=== PATIENT | male | born 1955 | race Two or more races ===

== ENCOUNTER 2018-01-08 20:17 | Inpatient (IN) ==
[2018-01-08 20:49] LABS: Basophils % 0.1 % (0.1-2.0); Eosinophils # 0.1 K/mm3 (0.0-0.4); Eosinophils % 0.6 % (0.1-12.0); Hematocrit 45.9 % (42.0-52.0); Hemoglobin 14.9 g/dL (14.1-18.0); Lymphocytes % 8.3 % (10-50); Mean Corpuscular HGB Conc 32.5 g/dL (31.8-35.4); Mean Corpuscular Hemoglobin 30.2 pg (27.0-31.2); Mean Corpuscular Volume 92.9 fl (80-94); Mean Platelet Volume 8.5 fl (7.4-10.4); Monocytes # 0.5 K/mm3 (0.1-1.0); Monocytes % 4.5 % (1.7-9.3); Neutrophils # 10.5 K/mm3 (1.8-7.8); Neutrophils % 86.5 % (37.0-80.0); Platelet Count 250 K/mm3 (142-424); Red Blood Count 4.94 M/mm3 (4.60-6.20); Red Cell Distribution Width 13.4 % (11.5-17.5); White Blood Count 12.1 K/mm3 (4.8-10.8)
[2018-01-08 21:06] LABS: Lymphocytes % 4 % (10-50); Monocytes % 2 % (2-9); Neutrophils % 80 % (42-76); RBC Morphology Normal; Total Cells Counted 100
[2018-01-08 21:11] LABS: Albumin Level 2.7 gm/dL (3.4-5.0); Anion Gap 16.3 mEq/L (5-15); Bilirubin,Direct 0.4 mg/dL (0.0-0.2); Bilirubin,Indirect 0.5 mg/dL (0.0-0.9); Bilirubin,Total 0.9 mg/dL (0.2-1.0); Calcium 8.5 mg/dL (8.5-10.1); Potassium 3.3 mmoL/L (3.5-5.1); T4 (Thyroxine) 7.3 ug/dl (4.7-13.3); Thyroid Stimulating Hormone 0.97 uIU/ml (0.358-3.740); Total Protein,Serum 7.1 gm/dL (6.4-8.2)
[2018-01-08 21:37] LABS: Microscopic, Urine URINE MICROSCOPIC (MICROSCOPIC)
[2018-01-08 21:39] LABS: Appearance,Urine CLEAR (Clear); Bilirubin,Urine Negative (Negative); Blood, Urine 3+ (Negative); Color,Urine YELLOW (Yellow); Glucose,Urine (UA) Negative (Negative); Ketones,Urine 1+ (Negative); Leukocyte Esterase,Urine Negative (Negative); Protein,Urine 1+ (Negative)
[2018-01-08 21:42] LABS: Amorphous Sediment,Urine Trace /lpf
--- NOTE | 2018-01-08 22:03 | Emergency Department Note ---
ED Disposition Clinical Impression: Hyponatremia CAP (community acquired pneumonia) Qualifiers: Laterality: right Lung location: lower lobe of lung Qualified Code(s): J18.1 - Lobar pneumonia, unspecified organism Disposition: Admitted as Observation Condition on Discharge: Good Referrals: Provider,Referral, [Primary Care Provider] - - Critical Care Critical Care Time: No Attestation: On 01/08/18, the high probability of a clinically significant, sudden or life threatening deterioration of the following system(s) required my full and direct attention, intervention and personal management. The time I documented below is in addition to time spent performing reported procedures but includes the following listed in this critical care notation. Medical Decision Making - Medical Records Medical records reviewed: Yes: I reviewed the patient's medical records. - Trevor Inquiry Pt receiving controlled substance: No Vital Signs: 01/08/18 20:20 01/08/18 21:14 01/08/18 21:28 Temperature 103 F H 102.1 F H 100.4 F H Temperature Source Oral Oral Oral Pulse Rate [Right Brachial] 103 H 72 81 Respiratory Rate 18 14 Blood Pressure [Right Arm] 110/47 L 103/41 L 115/66 Blood Pressure Mean [Right Arm] 68 61 82 Blood Pressure Source [Right Arm] Automatic Cuff Blood Pressure Position [Right Arm] Sitting 02 Sat by Pulse Oximetry 95 95 96 Oxygen Delivery Method Room Air Room Air Room Air - Lab Data Lab results reviewed: Yes: I reviewed the patient's lab results. Lab Results 01/08/18 20:30: WBC 12.1 H, RBC 4.94, Hgb 14.9, Hct 45.9, MCV 92.9, MCH 30.2, MCHC 32.5, RDW 13.4, Plt Count 250, MPV 8.5, Neut % (Auto) 86.5 H, Lymph % (Auto) 8.3 L, [place] % (Auto) 4.5, Eos % (Auto) 0.6, Baso % (Auto) 0.1, Neut # (Auto) 10.5 H, Lymph # (Auto) 1.0, [place] # (Auto) 0.5, Eos # (Auto) 0.1, Baso # (Auto) 0.0, Total Counted 100, Neutrophils % (Manual) 80 H, Band Neutrophils % 14.0 H, Lymphocytes % (Manual) 4 L, Monocytes % (Manual) 2, Platelet Estimate Normal, RBC Morphology Normal 01/08/18 20:30: Sodium 124 L, Potassium 3.3 L, Chloride 88 L, Carbon Dioxide 23, Anion Gap 16.3 H, BUN 21 H, Creatinine 1.04, Estimated Creat Clear 92, Estimated GFR 72, Est GFR ( Amer) 87, Glucose 141 H, Calcium 8.5, Total Bilirubin 0.9, Direct Bilirubin 0.4 H, Indirect Bilirubin 0.5, AST 87 H, ALT 53, Alkaline Phosphatase 63, Troponin I 0.10 H, Total Protein 7.1, Albumin 2.7 L, Amylase 52, Lipase 163, TSH 0.97, Thyroxine (T4) 7.3 01/08/18 20:30: Lactate 1.7 01/08/18 20:30: Influenza Type A Ag Negative, Influenza Type B Ag Negative 01/08/18 21:27: Urine Color Yellow, Urine Appearance Clear, Urine pH 6.0, Ur Specific [place] 1.020, Urine Protein 1+, Urine Glucose (UA) Negative, Urine Ketones 1+, Urine Blood 3+, Urine Nitrate Negative, Urine Bilirubin Negative, Urine Urobilinogen 4.0, Ur Leukocyte Esterase Negative, Urine RBC 5-10, Urine WBC 3-5, Amorphous Sediment Trace Result diagrams: 01/08/18 20:30 01/08/18 20:30 Orders (Tests/Meds): ED MEDICATIONS Discontinued Medications Generic Name Dose Route Start Last Admin Trade Name Oma PRN Reason Stop Dose Admin Acetaminophen 1,000 mg 01/08/18 20:29 01/08/18 20:33 Tylenol 500mg Tablet PO 01/08/18 20:30 1,000 mg ONCE ONE Administration Aspirin 324 mg 01/08/18 20:29 01/08/18 20:33 Aspirin 81mg Chewable Tablet PO 01/08/18 20:30 324 mg ONCE ONE Administration Sodium Chloride 1,000 mls @ 999 mls/hr 01/08/18 20:45 01/08/18 20:33 Sod Chlor 0.9% 1000ml Bag IV 01/08/18 21:45 999 mls/hr .Q1H1M ESTRELLA Administration Ibuprofen 800 mg 01/08/18 20:29 01/08/18 20:33 Motrin 400mg Tablet PO 01/08/18 20:30 800 mg ONCE ONE Administration Methylprednisolone Sodium Succinate 125 mg 01/08/18 20:29 01/08/18 20:33 Solu-Medrol 125mg/2ml Vial IV 01/08/18 20:30 125 mg ONCE ONE Administration Ondansetron HCl 4 mg 01/08/18 20:29 01/08/18 20:33 Zofran 4mg/2ml Vial IV 01/08/18 20:30 4 mg ONCE ONE Administration ORDERS Category Date Time Status CT abdomen pelvis wo con Stat Cat Scan 01/08/18 20:[address] chest wo con Routine Cat Scan 01/08/[address] head/brain wo con Stat Cat Scan 01/08/18 20:29 Taken XR chest 2V Stat Exams 01/08/18 20:29 Taken Urinalysis-Acute [Urinalysis and Microscopic] Stat Lab 01/08/18 21:27 Ordered Blood Culture Stat Micro 01/08/18 20:33 Ordered ECG Request by /Nav Stat Y 01/08/18 20:29 Ordered - Radiology Data #1 Image(s): Chest Image Reviewed: Yes I reviewed the patient's radiology image Preliminary Findings: Abnormal (cap) - CT Data CT Scan: Head, Abdomen, Pelvis, Chest Time Received: 22:[address] Reviewed: Yes: I have viewed the radiologist's interpretation Preliminary Findings: Abnormal (see report) - ECG Data Tracing #1 I reviewed this ECG and interpreted as documented below: Normal Sinus Rhythm: Yes Ischemic changes: non-specific ST-T wave changes ECG compared to prior tracings: this ECG reveals significant changes - Physician Consults Physician Consulted: atul Reason -: Admission Fever HPI - General Chief Complaint: Weakness Stated Complaint: Vomiting, lethargic Time Seen by Provider: 01/08/18 20:30 Mode of Arrival: Ambulatory Limitations: No Limitations Description of Symptoms (Recalled from ER Triage Doc. by RN): Pt reports since Friday he has been vomiting, shaking, chills, possible fevers, and lethargy since Friday. Family reports during Thanksgiving dinner they noticed he was not "ok and not himself" so they brought him in. Pt denies pain at this time, he does report vomiting at this time. Denies abdominal pain. Denies cp, does c/o soa. - History of Present Illness HPI Narrative: prod cough with no hemoptysis and progressive fever with confusion over the last few days - does smoke MD complaint: fever Onset (ago): day(s) Associated symptoms: cough, confusion Relieving factors: nothing Treatments prior to arrival fever: none - Related Data Home Medications Medication Instructions Recorded Confirmed No Known Home Medications 01/08/18 01/08/18 Allergies Allergy/AdvReac Type Severity Reaction Status Date / Time No Known Allergies Allergy Verified 01/07/18 10:58 [facility] History I have reviewed the patient's past medical history: Yes Medical History: Denies:: Cancer, Diabetes Mellitus Type 1, Diabetes Mellitus Type 2, MRSA Other Surgeries: Yes: No Previous Surgery Amputation: No Fractures: No - Social History Smoking Status: Current every day smoker Tobacco Type: cigarettes # Packs/Day (cigarettes): 1 Alcohol Intake: never Alcohol Intake Frequency:: holidays/special occasions only Occupational Status: employed Housing: house Household Members: family - Psychiatric History Expresses thoughts of harming self/others: None Suicide Plan Description: No Plan Family Hx:: No significant family history ROS Obtained: Yes All systems reviewed & no additional complaints - Constitutional Constitutional: Reports fever(s), Reports poor appetite, Reports weakness - Eyes Eyes: Denies change in vision - ENT Ears, Nose, Mouth, and Throat: Denies sore throat - Cardiovascular Cardiovascular: Denies chest pain - Respiratory Respiratory: Yes cough, No coughing up blood - Gastrointestinal Gastrointestingal: Reports: nausea, vomiting. Denies: abdominal pain, diarrhea - Genitourinary Male Genitourinary: Denies hematuria - Musculoskeletal Musculoskeletal: Denies joint pain - Integumentary/Breasts Skin/Breast: Denies rash - Neurologic Neurologic: Reports as per HPI, Reports confusion, Denies seizure-like activity Physical Exam - General General appearance: alert - Head Head exam: normocephalic - Eye Eye exam: Present: PERRL, EOMI. Absent: scleral icterus - ENT ENT exam: Present: mucous membranes dry - Neck Neck exam: Present: trachea midline - Respiratory Respiratory exam: Absent: respiratory distress - Cardiovascular Cardiovascular exam: Present: regular rate, systolic murmur - Abdominal Exam Abdominal exam: Present: soft. Absent: tenderness - Extremities Exam Extremities exam: Present: full ROM - Neurological Exam Neurological exam: Present: alert, oriented X3, CN II-XII intact. Absent: motor sensory deficit - Psychiatric Psychiatric exam: Present: normal affect - Skin Skin exam: Absent: rash
[2018-01-09 04:35] LABS: Basophils % 0.1 % (0.1-2.0); Eosinophils # 0.1 K/mm3 (0.0-0.4); Eosinophils % 0.9 % (0.1-12.0); Hematocrit 44.1 % (42.0-52.0); Hemoglobin 14.1 g/dL (14.1-18.0); Lymphocytes # 0.8 K/mm3 (0.7-4.5); Lymphocytes % 8.9 % (10-50); Mean Corpuscular Hemoglobin 30.3 pg (27.0-31.2); Mean Corpuscular Volume 94.5 fl (80-94); Mean Platelet Volume 8.8 fl (7.4-10.4); Monocytes # 0.3 K/mm3 (0.1-1.0); Monocytes % 3.2 % (1.7-9.3); Neutrophils # 7.5 K/mm3 (1.8-7.8); Platelet Count 200 K/mm3 (142-424); Red Blood Count 4.67 M/mm3 (4.60-6.20); Red Cell Distribution Width 13.5 % (11.5-17.5); White Blood Count 8.7 K/mm3 (4.8-10.8)
[2018-01-09 04:50] LABS: Anion Gap 12.1 mEq/L (5-15); Calcium 7.5 mg/dL (8.5-10.1); Potassium 3.1 mmoL/L (3.5-5.1)
--- NOTE | 2018-01-09 06:50 | History & Physical Report ---
*Admission Date: 01/08/18 *Chief complaint: Fever *History of present illness: 62-year-old male with no significant medical history other than he is a smoker presented to the emergency department with fevers and change in level of consciousness. Patient had been experiencing fevers for approximately the last week. He had associated cough and mild shortness of breath. This did not prevent him from traveling to [place]. Upon return from [place] he was spending time with family yesterday and was noticed to have altered level of consciousness and was brought to the ER. In the ER patient seemed excessively sleepy but could awaken with verbal and tactile stimulus. He would answer questions appropriately and then she had his eyes again. He was found to be febrile. Workup was begun which were revealed a right lower lobe pneumonia on chest x-ray. Once patient defervesced he became more alert. Patient was admitted for treatment of right lower lobe pneumonia. Once he arrived up on the floor patient returned to his previous level of consciousness with excessive drowsiness. He would easily awaken to verbal and tactile stimulus from the nurses. He developed hypothermia and was placed under warm blankets and a bear hugger. Patient also developed some widened QRS for a few beats on telemetry monitoring and was given a gram of magnesium. This morning he remains drowsy but awakens easily. He denies pain. He denies chest pain. He denies joint pains. He denies rashes. He denies nausea, vomiting, diarrhea. [facility] History I have reviewed the patient's past medical history: Yes Medical History: Denies:: Cancer, Diabetes Mellitus Type 1, Diabetes Mellitus Type 2, MRSA Other Surgeries: Yes: No Previous Surgery Amputation: No Fractures: No - *Social History Educational Level: Attended High School Smoking Status: Current every day smoker Tobacco Type: cigarettes # Packs/Day (cigarettes): 1 #Yrs smoked (if former smoker): 30 Alcohol Intake: current Alcohol Intake Frequency:: holidays/special occasions only Occupational Status: employed Housing: house Household Members: family - Psychiatric History Expresses thoughts of harming self/others: None Suicide Plan Description: No Plan *Family Hx:: No significant family history Review of Systems - Review of Systems Review of systems:: pertinent systems reviewed and negative unless documented below - *Neurologic Reports confusion, Reports weakness, Denies seizure-like activity Meds Home Medications Medication Instructions Recorded Confirmed Type No Known Home Medications 01/08/18 01/08/18 History Allergies Allergy/AdvReac Type Severity Reaction Status Date / Time No Known Allergies Allergy Verified 01/07/18 10:58 Exam Vital signs and Labs for Last 24 Hours: Temp Pulse Resp BP Pulse Ox 94.4 F L 93 H 14 99/67 L 94 L 01/09/18 06:15 01/09/18 06:00 01/09/18 06:00 01/09/18 06:00 01/09/18 06:00 Laboratory Results - last 24 hr 01/08/18 20:30: WBC 12.1 H, RBC 4.94, Hgb 14.9, Hct 45.9, MCV 92.9, MCH 30.2, MCHC 32.5, RDW 13.4, Plt Count 250, MPV 8.5, Neut % (Auto) 86.5 H, Lymph % (Auto) 8.3 L, [place] % (Auto) 4.5, Eos % (Auto) 0.6, Baso % (Auto) 0.1, Neut # (Auto) 10.5 H, Lymph # (Auto) 1.0, [place] # (Auto) 0.5, Eos # (Auto) 0.1, Baso # (Auto) 0.0, Total Counted 100, Neutrophils % (Manual) 80 H, Band Neutrophils % 14.0 H, Lymphocytes % (Manual) 4 L, Monocytes % (Manual) 2, Platelet Estimate Normal, RBC Morphology Normal 01/08/18 20:30: Sodium 124 L, Potassium 3.3 L, Chloride 88 L, Carbon Dioxide 23, Anion Gap 16.3 H, BUN 21 H, Creatinine 1.04, Estimated Creat Clear 92, Estimated GFR 72, Est GFR ( Amer) 87, Glucose 141 H, Calcium 8.5, Total Bilirubin 0.9, Direct Bilirubin 0.4 H, Indirect Bilirubin 0.5, AST 87 H, ALT 53, Alkaline Phosphatase 63, Troponin I 0.10 H, Total Protein 7.1, Albumin 2.7 L, Amylase 52, Lipase 163, TSH 0.97, Thyroxine (T4) 7.3 01/08/18 20:30: Lactate 1.7 01/08/18 20:30: Influenza Type A Ag Negative, Influenza Type B Ag Negative 01/08/18 21:27: Urine Color Yellow, Urine Appearance Clear, Urine pH 6.0, Ur Specific [place] 1.020, Urine Protein 1+, Urine Glucose (UA) Negative, Urine Ketones 1+, Urine Blood 3+, Urine Nitrate Negative, Urine Bilirubin Negative, Urine Urobilinogen 4.0, Ur Leukocyte Esterase Negative, Urine RBC 5-10, Urine WBC 3-5, Amorphous Sediment Trace 01/09/18 01:30: Troponin I 0.08 H 01/09/18 01:39: POC Glucose 145 H 01/09/18 04:25: Sodium 135 L, Potassium 3.1 L, Chloride 104, Carbon Dioxide 22, Anion Gap 12.1, BUN 20 H, Creatinine 0.84, Estimated Creat Clear 96, Estimated GFR 92, Est GFR ( Amer) 111 D, Glucose 178 H D, Calcium 7.5 L D, Troponin I 0.07 H 01/09/18 04:25: WBC 8.7 D, RBC 4.67, Hgb 14.1, Hct 44.1, MCV 94.5 H, MCH 30.3, MCHC 32.0, RDW 13.5, Plt Count 200, MPV 8.8, Neut % (Auto) 87.0 H, Lymph % (Auto) 8.9 L, [place] % (Auto) 3.2, Eos % (Auto) 0.9, Baso % (Auto) 0.1, Neut # (Auto) 7.5, Lymph # (Auto) 0.8, [place] # (Auto) 0.3, Eos # (Auto) 0.1, Baso # (Auto) 0.0 01/09/18 04:25: Lactate 1.1 I & O for Last 24 hours: Intake & Output 01/06/18 01/07/18 01/08/18 01/09/18 11:59 11:59 11:59 11:59 Intake Total 1500 / 1500 Output Total 600 / 600 Balance 900 / 900 Weight 201 lb 7 oz Narrative: He appears comfortable in bed. His skin is cool and coated in sweat. Pupils are reactive to light. Oropharynx is moist and clear. Neck is without l ymphadenopathy or carotid bruits. Lungs have prominent rales in the right base. Heart is tachycardic. S1-S2 are auscultated and no murmur. Abdomen is soft and nontender. Extremities are warm to the touch. He has motor and sensory function intact in all extremities. The skin is without rashes. Perfusion is normal with capillary refill less than 2 seconds. Patient is oriented to person place and time Assessment and Plan (1) Sepsis Current visit: Yes Status: Acute Category: Medical Code(s): A41.9 - Sepsis, unspecified organism (2) Hypokalemia Current visit: Yes Status: Acute Category: Medical Code(s): E87.6 - Hypokalemia (3) CAP (community acquired pneumonia) Current visit: Yes Status: Acute Qualifiers: Laterality: right Lung location: lower lobe of lung Qualified Code(s): J18.1 - Lobar pneumonia, unspecified organism Category: Medical Code(s): J18.9 - Pneumonia, unspecified organism (4) Hyponatremia Current visit: Yes Status: Acute Category: Medical Code(s): E87.1 - Hypo- osmolality and hyponatremia (5) Cigarette smoker Current visit: Yes Status: Acute Category: Medical Code(s): F17.210 - Nicotine dependence, cigarettes, uncomplicated - Assessment and plan all Dx Assessment and Plan for all problems:: 1. Patient has met criteria for sepsis and received Rocephin on admission along with azithromycin. Vancomycin was added and patient also received cefepime. Continue fluids at 200 mL's per hour. Monitor urine output. 2. Start oral potassium replacement. Check magnesium level this morning 3. Lovenox for DVT prophylaxis
--- NOTE | 2018-01-09 08:18 | Pharmacy Consult Notes ---
- Pharmacy Consult Date: 01/09/18 Time: 08:16 Referring provider: DR. HAYWARD Reason for Consult:: VANCOMYCIN DOSING Allergies and ADEs:: Allergies Allergy/AdvReac Type Severity Reaction Status Date / Time No Known Allergies Allergy Verified 01/07/18 10:58 Home Medications:: Home Medications Medication Instructions Recorded Confirmed Type No Known Home Medications 01/08/18 01/08/18 History Height: 1.75 m Weight: 91.371 kg Laboratory Results:: Laboratory Results - last 24 hr 01/08/18 20:30: WBC 12.1 H, RBC 4.94, Hgb 14.9, Hct 45.9, MCV 92.9, MCH 30.2, MCHC 32.5, RDW 13.4, Plt Count 250, MPV 8.5, Neut % (Auto) 86.5 H, Lymph % (Auto) 8.3 L, [place] % (Auto) 4.5, Eos % (Auto) 0.6, Baso % (Auto) 0.1, Neut # (Auto) 10.5 H, Lymph # (Auto) 1.0, [place] # (Auto) 0.5, Eos # (Auto) 0.1, Baso # (Auto) 0.0, Total Counted 100, Neutrophils % (Manual) 80 H, Band Neutrophils % 14.0 H, Lymphocytes % (Manual) 4 L, Monocytes % (Manual) 2, Platelet Estimate Normal, RBC Morphology Normal 01/08/18 20:30: Sodium 124 L, Potassium 3.3 L, Chloride 88 L, Carbon Dioxide 23, Anion Gap 16.3 H, BUN 21 H, Creatinine 1.04, Estimated Creat Clear 92, Estimated GFR 72, Est GFR ( Amer) 87, Glucose 141 H, Calcium 8.5, Total Bilirubin 0 .9, Direct Bilirubin 0.4 H, Indirect Bilirubin 0.5, AST 87 H, ALT 53, Alkaline Phosphatase 63, Troponin I 0.10 H, Total Protein 7.1, Albumin 2.7 L, Amylase 52, Lipase 163, TSH 0.97, Thyroxine (T4) 7.3 01/08/18 20:30: Lactate 1.7 01/08/18 20:30: Influenza Type A Ag Negative, Influenza Type B Ag Negative 01/08/18 21:27: Urine Color Yellow, Urine Appearance Clear, Urine pH 6.0, Ur Specific [place] 1.020, Urine Protein 1+, Urine Glucose (UA) Negative, Urine Ketones 1+, Urine Blood 3+, Urine Nitrate Negative, Urine Bilirubin Negative, Urine Urobilinogen 4.0, Ur Leukocyte Esterase Negative, Urine RBC 5-10, Urine WBC 3-5, Amorphous Sediment Trace 01/09/18 01:30: Troponin I 0.08 H 01/09/18 01:39: POC Glucose 145 H 01/09/18 04:25: Sodium 135 L, Potassium 3.1 L, Chloride 104, Carbon Dioxide 22, Anion Gap 12.1, BUN 20 H, Creatinine 0.84, Estimated Creat Clear 96, Estimated GFR 92, Est GFR ( Amer) 111 D, Glucose 178 H D, Calcium 7.5 L D, Troponin I 0.07 H 01/09/18 04:25: WBC 8.7 D, RBC 4.67, Hgb 14.1, Hct 44.1, MCV 94.5 H, MCH 30.3, MCHC 32.0, RDW 13.5, Plt Count 200, MPV 8.8, Neut % (Auto) 87.0 H, Lymph % (Auto) 8.9 L, [place] % (Auto) 3.2, Eos % (Auto) 0.9, Baso % (Auto) 0.1, Neut # (Auto) 7.5, Lymph # (Auto) 0.8, [place] # (Auto) 0.3, Eos # (Auto) 0.1, Baso # (Auto) 0.0 01/09/18 04:25: Lactate 1.1 01/09/18 04:30: Magnesium 2.6 H Medical History: Denies:: Cancer, Diabetes Mellitus Type 1, Diabetes Mellitus Type 2, MRSA Assessment and Plan (1) Sepsis Current visit: Yes Status: Acute Category: Medical Code(s): A41.9 - Sepsis, unspecified organism (2) Hypokalemia Current visit: Yes Status: Acute Category: Medical Code(s): E87.6 - Hypokalemia (3) CAP (community acquired pneumonia) Current visit: Yes Status: Acute Qualifiers: Laterality: right Lung location: lower lobe of lung Qualified Code(s): J18.1 - Lobar pneumonia, unspecified organism Category: Medical Code(s): J18.9 - Pneumonia, unspecified organism (4) Hyponatremia Current visit: Yes Status: Acute Category: Medical Code(s): E87.1 - Hypo- osmolality and hyponatremia (5) Cigarette smoker Current visit: Yes Status: Acute Category: Medical Code(s): F17.210 - Nicotine dependence, cigarettes, uncomplicated - Assessment and plan all Dx Assessment and Plan for all problems:: BASED ON PATIENT FACTORS, RECOMMEND INITIATING VANCOMYCIN IV AT 1,750MG EVERY 18 HOURS. PHARMACY WILL OBTAIN TROUGH LEVEL PRIOR TO THE FOURTH DOSE AND WILL ADJUST VANCOMYCIN DOSE APPROPRIATE AT THAT POINT. -CHRISTOPHER RONDON, KRISSD
--- NOTE | 2018-01-09 08:19 | Pharmacy Consult Notes ---
[facility] Pharmacy VTE Monitoring - Patient Demographics Admission date: 01/09/18 Report Date: 01/09/18 Time: 08:18 Allergies/Adverse Reactions: Patient Allergies No Known Allergies Allergy (Verified 01/07/18 10:58) Height: 1.75 m Weight: 91.371 kg Patient Problems: Current Active Problems CAP (community acquired pneumonia) (Acute) Hyponatremia (Acute) Hypokalemia (Acute) Cigarette smoker (Acute) Sepsis (Acute) - VTE Risk Labs: VTE Related Lab Results Hgb 14.1 g/dL (14.1-18.0) 01/09/18 04:25 Hct 44.1 % (42.0-52.0) 01/09/18 04:25 Plt Count 200 K/mm3 (142-424) 01/09/18 04:25 BUN 20 mg/dL (7-18) H 01/09/18 04:25 Creatinine 0.84 mg/dL (0.70-1.30) 01/09/18 04:25 Estimated Creat Clear 96 mL/min (50-200) 01/09/18 04:25 Was VTE Risk Assessment Performed: No VTE Risk Level: Low Risk - Prophylaxis VTE Prophylaxis Ordered?: Yes Types of VTE Prophylaxis: Pharmacological Pharmacologic Type: Enoxaparin - VTE Diagnosis Confirmed Treatment or plan recommended: Continue Current Treatment
[2018-01-09 08:22] LABS: Coronavirus 229E Not Detected (NotDetected); Coronavirus NL63 Not Detected (NotDetected); Coronavirus OC43 Not Detected (NotDetected); Coronovirus HKU1,PCR Not Detected (NotDetected)
--- NOTE | 2018-01-09 14:51 | Progress Note ---
Internal Medicine - PN: Subj *Date: 01/09/18 *Time: 14:49 Interval history: Patient's blood pressure and pulse rate have been quite variable throughout the day. Shortly after rounding this morning a repeat EKG revealed atrial fibrillation and patients pulse rate has varied from 90-140. Currently he is being loaded with digoxin intravenously. Patient was given a single dose of metoprolol 5 mg which brought his pulse down to the 90s but also lowered his blood pressure to a systolic of 88. Echocardiogram has a preliminary read of an ejection fraction of approximately 42%. Despite the fluctuations in patient's temperature, blood pressure, pulse he actually states he is feeling better. He is remained on bear hugger and warm blankets most of the day due to his hypothermia. Exam Vital signs and Labs for Last 24 Hours: Temp Pulse Resp BP Pulse Ox 96.5 F L 97 H 18 89/60 L 98 01/09/18 13:30 01/09/18 12:00 01/09/18 11:59 01/09/18 11:59 01/09/18 11:59 Laboratory Results - last 24 hr 01/08/18 20:30: WBC 12.1 H, RBC 4.94, Hgb 14.9, Hct 45.9, MCV 92.9, MCH 30.2, MCHC 32.5, RDW 13.4, Plt Count 250, MPV 8.5, Neut % (Auto) 86.5 H, Lymph % (Auto) 8.3 L, [place] % (Auto) 4.5, Eos % (Auto) 0.6, Baso % (Auto) 0.1, Neut # (Auto) 10.5 H, Lymph # (Auto) 1.0, [place] # (Auto) 0.5, Eos # (Auto) 0.1, Baso # (Auto) 0.0, Total Counted 100, Neutrophils % (Manual) 80 H, Band Neutrophils % 14.0 H, Lymphocytes % (Manual) 4 L, Monocytes % (Manual) 2, Platelet Estimate Normal, RBC Morphology Normal 01/08/18 20:30: Sodium 124 L, Potassium 3.3 L, Chloride 88 L, Carbon Dioxide 23, Anion Gap 16.3 H, BUN 21 H, Creatinine 1.04, Estimated Creat Clear 92, Estimated GFR 72, Est GFR ( Amer) 87, Glucose 141 H, Calcium 8.5, Total Bilirubin 0.9, Direct Bilirubin 0.4 H, Indirect Bilirubin 0.5, AST 87 H, ALT 53, Alkaline Phosphatase 63, Troponin I 0.10 H, Total Protein 7.1, Albumin 2.7 L, Amylase 52, Lipase 163, TSH 0.97, Thyroxine (T4) 7.3 01/08/18 20:30: Lactate 1.7 01/08/18 20:30: Influenza Type A Ag Negative, Influenza Type B Ag Negative 01/08/18 21:27: Urine Color Yellow, Urine Appearance Clear, Urine pH 6.0, Ur Specific [place] 1.020, Urine Protein 1+, Urine Glucose (UA) Negative, Urine Ketones 1+, Urine Blood 3+, Urine Nitrate Negative, Urine Bilirubin Negative, Urine Urobilinogen 4.0, Ur Leukocyte Esterase Negative, Urine RBC 5-10, Urine WBC 3-5, Amorphous Sediment Trace 01/09/18 01:30: Troponin I 0.08 H 01/09/18 01:39: POC Glucose 145 H 01/09/18 04:25: Sodium 135 L, Potassium 3.1 L, Chloride 104, Carbon Dioxide 22, Anion Gap 12.1, BUN 20 H, Creatinine 0.84, Estimated Creat Clear 96, Estimated GFR 92, Est GFR ( Amer) 111 D, Glucose 178 H D, Calcium 7.5 L D, Troponin I 0.07 H 01/09/18 04:25: WBC 8.7 D, RBC 4.67, Hgb 14.1, Hct 44.1, MCV 94.5 H, MCH 30.3, MCHC 32.0, RDW 13.5, Plt Count 200, MPV 8.8, Neut % (Auto) 87.0 H, Lymph % (Auto) 8.9 L, [place] % (Auto) 3.2, Eos % (Auto) 0.9, Baso % (Auto) 0.1, Neut # (Auto) 7.5, Lymph # (Auto) 0.8, [place] # (Auto) 0.3, Eos # (Auto) 0.1, Baso # (Auto) 0.0 01/09/18 04:25: Lactate 1.1 01/09/18 04:30: Magnesium 2.6 H 01/09/18 08:05: Chlamy pneumoniae PCR Not detected, Adenovirus (PCR) Not detected, B.parapertussis DNA PCR Not detected, Coronavirus OC43 (PCR) Not detec sheri, Coronavirus HKU1 (PCR) Not detected, Coronavirus 229E (PCR) Not detected, Coronavirus NL63 (PCR) Not detected, Human Metapneumovir PCR Not detected, Influenza A (H1) PCR Not detected, Influ A (H1N1/09) PCR Not detected, Influenza A (H3) PCR Not detected, Influenza Type A (PCR) Not detected, Influenza Type B (PCR) Not detected, M. pneumoniae (PCR) Not detected, Parainfluenza 1 (PCR) Not detected, Parainfluenza 2 (PCR) Not detected, Parainfluenza 3 (PCR) Not detected, Parainfluenza 4 (PCR) Not detected, RSV (PCR) Not detected, Entero/Rhino (PCR) Not detected 01/09/18 12:31: Troponin I 0.04 I & O for Last 24 hours: Intake & Output 01/07/18 01/08/18 01/09/18 01/10/18 11:59 11:59 11:59 11:59 Intake Total 1500 / 1500 Output Total 1000 / 1000 Balance 500 / 500 Weight 201 lb 7 oz Narrative: Patient appears more alert at the moment. He is still diaphoretic. Heart rate is irregularly irregular. Lungs have rales at the right base. Neurologically there is no deficit. Assessment and Plan (1) Sepsis Current visit: Yes Status: Acute Category: Medical Code(s): A41.9 - Sepsis, unspecified organism (2) Hypokalemia Current visit: Yes Status: Acute Category: Medical Code(s): E87.6 - Hypokalemia (3) CAP (community acquired pneumonia) Current visit: Yes Status: Acute Qualifiers: Laterality: right Lung location: lower lobe of lung Qualified Code(s): J18.1 - Lobar pneumonia, unspecified organism Category: Medical Code(s): J18.9 - Pneumonia, unspecified organism (4) Hyponatremia Current visit: Yes Status: Acute Category: Medical Code(s): E87.1 - Hypo- osmolality and hyponatremia (5) Cigarette smoker Current visit: Yes Status: Acute Category: Medical Code(s): F17.210 - Nicotine dependence, cigarettes, uncomplicated (6) New onset atrial fibrillation Current visit: Yes Status: Acute Category: Medical Code(s): I48.91 - Unspecified atrial fibrillation - Assessment and plan all Dx Assessment and Plan for all problems:: 1. Continue Rocephin, azithromycin, vancomycin for pneumonia/sepsis 2. Give Lovenox a dose of 1 mg/kg subcu every 12 hours for atrial fibrillation/anticoagulation 3. To control the heart rate he will be started on Cardizem drip and titrated to keep his pulse at 100 or less. If necessary he will simultaneously believe placed on Levophed to keep systolic blood pressure at 110 or greater and map greater than 60.
[2018-01-10 06:01] LABS: Basophils % 0.1 % (0.1-2.0); Eosinophils # 0.2 K/mm3 (0.0-0.4); Hematocrit 43.1 % (42.0-52.0); Hemoglobin 14.3 g/dL (14.1-18.0); Lymphocytes # 1.1 K/mm3 (0.7-4.5); Mean Corpuscular HGB Conc 33.2 g/dL (31.8-35.4); Mean Corpuscular Hemoglobin 30.6 pg (27.0-31.2); Mean Corpuscular Volume 92.1 fl (80-94); Mean Platelet Volume 8.6 fl (7.4-10.4); Monocytes # 0.7 K/mm3 (0.1-1.0); Monocytes % 3.5 % (1.7-9.3); Neutrophils # 18.9 K/mm3 (1.8-7.8); Neutrophils % 90.4 % (37.0-80.0); Platelet Count 287 K/mm3 (142-424); Red Blood Count 4.67 M/mm3 (4.60-6.20); Red Cell Distribution Width 13.5 % (11.5-17.5)
[2018-01-10 06:02] LABS: White Blood Count 20.9 K/mm3 (4.8-10.8)
[2018-01-10 06:07] LABS: Anion Gap 12.4 mEq/L (5-15); Calcium 7.7 mg/dL (8.5-10.1); Potassium 3.4 mmoL/L (3.5-5.1)
[2018-01-10 06:14] LABS: Lymphocytes % 11 % (10-50); Monocytes % 1 % (2-9); Neutrophils % 69 % (42-76); Total Cells Counted 100
[2018-01-10 06:15] LABS: RBC Morphology Normal
--- NOTE | 2018-01-10 09:33 | Progress Note ---
Internal Medicine - PN: Subj *Date: 01/10/18 *Time: 09:29 Interval history: Overnight Mr. Maria resumed normal body temperature. Has maintained hemostasis with out use of Ricki hugger since 10 PM. This morning he feels he is back to normal, mentating appropriately. Denies any chest pain, shortness of breath, palpitations, fatigue, confusion. Tolerating breakfast with mild complaint of heartburn. Hemodynamically stable on diltiazem drip. No further episodes of hypotension, has not required Levophed in over 12 hours. Satting 90s on room air. Exam Vital signs and Labs for Last 24 Hours: Temp Pulse Resp BP Pulse Ox 98.0 F 82 18 104/57 L 92 L 01/10/18 06:00 01/10/18 07:00 01/10/18 07:00 01/10/18 07:00 01/10/18 07:00 Laboratory Results - last 24 hr 01/09/18 08:05: Chlamy pneumoniae PCR Not detected, Adenovirus (PCR) Not detected, B.parapertussis DNA PCR Not detected, Coronavirus OC43 (PCR) Not detected, Coronavirus HKU1 (PCR) Not detected, Coronavirus 229E (PCR) Not detected, Coronavirus NL63 (PCR) Not detected, Human Metapneumovir PCR Not detected, Influenza A (H1) PCR Not detected, Influ A (H1N1/09) PCR Not detected, Influenza A (H3) PCR Not detected, Influenza Type A (PCR) Not detected, Influenza Type B (PCR) Not detected, M. pneumoniae (PCR) Not detected, Parainfluenza 1 (PCR) Not detected, Parainfluenza 2 (PCR) Not detected, Parainfluenza 3 (PCR) Not detected, Parainfluenza 4 (PCR) Not detected, RSV (PCR) Not detected, Entero/Rhino (PCR) Not detected 01/09/18 12:31: Troponin I 0.04 01/09/18 22:00: POC Glucose 199 H 01/10/18 05:50: WBC 20.9 H* D, RBC 4.67, Hgb 14.3, Hct 43.1, MCV 92.1, MCH 30.6, MCHC 33.2, RDW 13.5, Plt Count 287 D, MPV 8.6, Neut % (Auto) 90.4 H, Lymph % (Auto) 5.0 L, [place] % (Auto) 3.5, Eos % (Auto) 1.0, Baso % (Auto) 0.1, Neut # (Auto) 18.9 H, Lymph # (Auto) 1.1, [place] # (Auto) 0.7, Eos # (Auto) 0.2, Baso # (Auto) 0.0, Total Counted 100, Neutrophils % (Manual) 69, Band Neutrophils % 19.0 H, Lymphocytes % (Manual) 11, Monocytes % (Manual) 1 L, Platelet Estimate Normal, RBC Morphology Normal 01/10/18 05:50: Sodium 138, Potassium 3.4 L, Chloride 107, Carbon Dioxide 22, Anion Gap 12.4, BUN 16, Creatinine 0.70, Estimated Creat Clear 97, Estimated GFR 114, Est GFR ( Amer) 137 D, Glucose 156 H, Calcium 7.7 L 01/10/18 05:50: Hemoglobin A1c 6.4 I & O for Last 24 hours: Intake & Output 01/07/18 01/08/18 01/09/18 01/10/18 23:59 23:59 23:59 23:59 Intake Total 1500 / 1500 6194 / 6194 2837 / 2837 Output Total 1000 / 1000 440 / 440 Balance 1500 / 1500 5194 / 5194 2397 / 2397 Weight 91.371 kg 91.371 kg 92.2 kg - *Routine HEENT Exam Head: Present: normocephalic, atraumatic Eye: Present: EOMI, PERRL ENT: Present: mucous membranes moist - *Routine Neck Exam Present: supple, full ROM. Absent: JVD - *Routine Respiratory Exam Present: CTA bilaterally (Throughout right upper, middle, and left olivier), crackles (Faint crackles right lower lobe). Absent: prolonged expiratory phase, wheezes - *Routine Cardiovascular Exam Present: Normal S1, Normal S2, irregularly irregular. Absent: murmur - *Routine Abdominal Exam Present: soft, normoactive bowel sounds, tenderness (Mild mid epigastric) - *Routine Rectal Exam Patient deferred: visual exam - *Routine Exam Patient deferred: penile exam - *Routine Extremities Exam Absent: cyanosis, clubbing, edema - *Routine Skin Exam Present: intact. Absent: cyanosis, erythema - *Routine Neurological Exam Present: alert, oriented X3, CN II-XII intact. Absent: altered mental status Assessment and Plan (1) Sepsis Current visit: Yes Status: Acute Category: Medical Code(s): A41.9 - Sepsis, unspecified organism Appears to have resolved -Continue broad-spectrum antibiotics, if remains stable, de-escalate to oral antibiotics tomorrow -Blood cultures pending (2) Hypokalemia Current visit: Yes Status: Acute Category: Medical Code(s): E87.6 - Hypokalemia Replacing as needed, switching to lactated Ringer's for additional potassium and fluids (3) CAP (community acquired pneumonia) Current visit: Yes Status: Acute Qualifiers: Laterality: right Lung location: lower lobe of lung Qualified Code(s): J18.1 - Lobar pneumonia, unspecified organism Category: Medical Code(s): J18.9 - Pneumonia, unspecified organism (4) Hyponatremia Current visit: Yes Status: Acute Category: Medical Code(s): E87.1 - Hypo- osmolality and hyponatremia Resolved (5) Cigarette smoker Current visit: Yes Status: Acute Category: Medical Code(s): F17.210 - Nicotine dependence, cigarettes, uncomplicated (6) New onset atrial fibrillation Current visit: Yes Status: Acute Category: Medical Code(s): I48.91 - Unspecified atrial fibrillation Discontinue diltiazem drip -Transition to oral diltiazem 120 mg extended release capsule -Goal heart rate less than 110 -Continue Lovenox for now, likely transition to oral anticoagulant for discharge home (7) Heart failure with reduced ejection fraction, NYHA class I Current visit: Yes Status: Acute Category: Medical Code(s): I50.20 - Unspecified systolic (congestive) heart failure New diagnosis per echo -Patient asymptomatic -Suspect may be related to new diagnosis of A. fib however unclear of duration or etiology. -Consulted cardiology, appreciate recommendation -At this time treating A. fib with diltiazem, patient cannot tolerate goal- directed therapy of beta-geena due to hypotension. Will transition to goal- directed therapy as patient tolerates. -We will look to initiate therapy including aspirin, statin, ANGELO inhibitor as patient tolerates, likely in the outpatient setting (8) Heartburn Current visit: Yes Status: Acute Category: Medical Code(s): R12 - Heartburn Finding of hiatal hernia on chest CT -Symptomatic with heartburn -Initiate omeprazole - Assessment and plan all Dx Assessment and Plan for all problems:: Patient hemodynamically stable. Stopped levo fed. Continues to require inpatient medical management. If remains stable for the next 24 hours without inotropic support or external warming, will de-escalate to floor status.
[2018-01-11 06:43] LABS: Basophils % 0.2 % (0.1-2.0); Eosinophils # 0.1 K/mm3 (0.0-0.4); Eosinophils % 1.5 % (0.1-12.0); Hematocrit 39.8 % (42.0-52.0); Hemoglobin 13.1 g/dL (14.1-18.0); Lymphocytes # 1.4 K/mm3 (0.7-4.5); Lymphocytes % 16.7 % (10-50); Mean Corpuscular HGB Conc 32.9 g/dL (31.8-35.4); Mean Corpuscular Hemoglobin 30.3 pg (27.0-31.2); Mean Corpuscular Volume 92.3 fl (80-94); Mean Platelet Volume 8.9 fl (7.4-10.4); Monocytes # 0.4 K/mm3 (0.1-1.0); Monocytes % 4.9 % (1.7-9.3); Neutrophils # 6.5 K/mm3 (1.8-7.8); Neutrophils % 76.8 % (37.0-80.0); Platelet Count 233 K/mm3 (142-424); Red Blood Count 4.31 M/mm3 (4.60-6.20); Red Cell Distribution Width 13.4 % (11.5-17.5); White Blood Count 8.5 K/mm3 (4.8-10.8)
[2018-01-11 06:52] LABS: Albumin Level 1.9 gm/dL (3.4-5.0); Albumin/Globulin Ratio 0.6 (1.1-1.8); Anion Gap 10.6 mEq/L (5-15); Bilirubin,Total 0.4 mg/dL (0.2-1.0); Calcium 7.6 mg/dL (8.5-10.1); Globulin 3.1 gm/dl (1.3-3.2); Potassium 3.6 mmoL/L (3.5-5.1)
[2018-01-11 06:53] LABS: Phosphorous 1.3 mg/dL (2.4-4.9)
--- NOTE | 2018-01-11 09:48 | Progress Note ---
Internal Medicine - PN: Subj *Date: 01/11/18 *Time: 08:45 Interval history: Patient did well overnight, remained afebrile. Blood pressure stable and appropriate. Continue to have irregular heart rate with control achieved in the 80s to low 100s. Denies any chest pain, shortness of breath nausea or vomiting. Patient still having some difficulty with swallowing, "I cannot go up and down a glass of water like I used to". Using a straw and swallowing well without cough for small sips. Exam Vital signs and Labs for Last 24 Hours: Temp Pulse Resp BP Pulse Ox 98.8 F 84 29 H 128/80 93 L 01/11/18 07:36 01/11/18 07:36 01/11/18 07:36 01/11/18 07:36 01/11/18 07:36 Laboratory Results - last 24 hr 01/11/18 06:25: WBC 8.5 D, RBC 4.31 L, Hgb 13.1 L, Hct 39.8 L, MCV 92.3, MCH 30.3, MCHC 32.9, RDW 13.4, Plt Count 233, MPV 8.9, Neut % (Auto) 76.8, Lymph % (Auto) 16.7, [place] % (Auto) 4.9, Eos % (Auto) 1.5, Baso % (Auto) 0.2, Neut # (Auto) 6.5, Lymph # (Auto) 1.4, [place] # (Auto) 0.4, Eos # (Auto) 0.1, Baso # (Auto) 0.0 01/11/18 06:25: Sodium 139, Potassium 3.6, Chloride 105, Carbon Dioxide 27 D, Anion Gap 10.6, BUN 9 D, Creatinine 0.63 L, Estimated Creat Clear 104, Estimated GFR 128, Est GFR ( Amer) 155, Glucose 101, Calcium 7.6 L, Phosphorus 1.3 L, Magnesium 2.0 D, Total Bilirubin 0.4, AST 45 H D, ALT 45, Alkaline Phosphatase 46, Total Protein 5.0 L D, Albumin 1.9 L, Globulin 3.1, Albumin/Globulin Ratio 0.6 L 01/11/18 08:45: Vancomycin Trough 5.3 L I & O for Last 24 hours: Intake & Output 01/08/18 01/09/18 01/10/18 11/25/18 23:59 23:59 23:59 23:59 Intake Total 1500 / 1500 6194 / 6194 4290 / 4290 1757 / 1757 Output Total 1000 / 1000 1640 / 1640 1175 / 1175 Balance 1500 / 1500 5194 / 5194 2650 / 2650 582 / 582 Weight 91.371 kg 91.371 kg 92.2 kg 98.486 kg Microbiology Reports for the Last 24 Hours: Microbiology 01/08/18 20:33 Blood Blood Culture - Preliminary NO GROWTH AFTER 48 HOURS 01/08/18 20:33 Blood Blood Culture - Preliminary NO GROWTH AFTER 48 HOURS - *Routine HEENT Exam Head: Present: normocephalic, atraumatic Eye: Present: EOMI, PERRL ENT: Present: mucous membranes moist - *Routine Neck Exam Present: supple. Absent: JVD, lymphadenopathy, thyromegaly - *Routine Respiratory Exam Present: crackles (Predominantly right-sided and lower lobe). Absent: accessory muscle use, wheezes - *Routine Cardiovascular Exam Present: Normal S1, Normal S2, irregularly irregular. Absent: murmur - *Routine Abdominal Exam Present: soft, normoactive bowel sounds. Absent: tenderness - *Routine Rectal Exam Patient deferred: visual exam - *Routine Exam Patient deferred: penile exam - *Routine Extremities Exam Absent: cyanosis, clubbing, edema - *Routine Skin Exam Present: warm. Absent: rash - *Routine Neurological Exam Present: alert, oriented X3 Assessment and Plan (1) Sepsis Current visit: Yes Status: Acute Category: Medical Code(s): A41.9 - Sepsis, unspecified organism (2) Hypokalemia Current visit: Yes Status: Acute Category: Medical Code(s): E87.6 - Hypokalemia (3) CAP (community acquired pneumonia) Current visit: Yes Status: Acute Qualifiers: Laterality: right Lung location: lower lobe of lung Qualified Code(s): J18.1 - Lobar pneumonia, unspecified organism Category: Medical Code(s): J18.9 - Pneumonia, unspecified organism (4) Hyponatremia Current visit: Yes Status: Acute Category: Medical Code(s): E87.1 - Hypo- osmolality and hyponatremia (5) Cigarette smoker Current visit: Yes Status: Acute Category: Medical Code(s): F17.210 - Nicotine dependence, cigarettes, uncomplicated (6) New onset atrial fibrillation Current visit: Yes Status: Acute Category: Medical Code(s): I48.91 - Unspecified atrial fibrillation (7) Heart failure with reduced ejection fraction, NYHA class I Current visit: Yes Status: Acute Category: Medical Code(s): I50.20 - Unspecified systolic (congestive) heart failure (8) Heartburn Current visit: Yes Status: Acute Category: Medical Code(s): R12 - Heartburn - Assessment and plan all Dx Assessment and Plan for all problems:: De-escalate antibiotics to oral today, transition to oral azithromycin and Omnicef. -Initiate incentive spirometer -Downgraded to floor status -Increased diltiazem to 180 mg extended release as patient's heart rate is still hitting low 100s and would like to achieve better rate control, continues to have stable blood pressures -Swallow eval ordered due to coughing with large sips -Needs to require inpatient management
--- NOTE | 2018-01-11 15:36 | Progress Note ---
Internal Medicine - PN: Subj *Date: 01/11/18 *Time: 15:36 Exam Vital signs and Labs for Last 24 Hours: Temp Pulse Resp BP Pulse Ox 98.4 F 93 H 22 127/76 92 L 01/11/18 15:30 01/11/18 15:30 01/11/18 15:30 01/11/18 15:30 01/11/18 15:30 Laboratory Results - last 24 hr 01/11/18 06:25: WBC 8.5 D, RBC 4.31 L, Hgb 13.1 L, Hct 39.8 L, MCV 92.3, MCH 30.3, MCHC 32.9, RDW 13.4, Plt Count 233, MPV 8.9, Neut % (Auto) 76.8, Lymph % (Auto) 16.7, [place] % (Auto) 4.9, Eos % (Auto) 1.5, Baso % (Auto) 0.2, Neut # (Auto) 6.5, Lymph # (Auto) 1.4, [place] # (Auto) 0.4, Eos # (Auto) 0.1, Baso # (Auto) 0.0 01/11/18 06:25: Sodium 139, Potassium 3.6, Chloride 105, Carbon Dioxide 27 D, Anion Gap 10.6, BUN 9 D, Creatinine 0.63 L, Estimated Creat Clear 104, Estimated GFR 128, Est GFR ( Amer) 155, Glucose 101, Calcium 7.6 L, Phosp horus 1.3 L, Magnesium 2.0 D, Total Bilirubin 0.4, AST 45 H D, ALT 45, Alkaline Phosphatase 46, Total Protein 5.0 L D, Albumin 1.9 L, Globulin 3.1, Albumin/Globulin Ratio 0.6 L 01/11/18 08:45: Vancomycin Trough 5.3 L I & O for Last 24 hours: Intake & Output 01/08/18 01/09/18 01/10/18 01/11/18 23:59 23:59 23:59 23:59 Intake Total 1500 / 1500 6194 / 6194 4290 / 4290 2237 / 2237 Output Total 1000 / 1000 1640 / 1640 2125 / 2125 Balance 1500 / 1500 5194 / 5194 2650 / 2650 112 / 112 Weight 91.371 kg 91.371 kg 92.2 kg 98.486 kg Microbiology Reports for the Last 24 Hours: Microbiology 01/08/18 20:33 Blood Blood Culture - Preliminary NO GROWTH AFTER 48 HOURS 01/08/18 20:33 Blood Blood Culture - Preliminary NO GROWTH AFTER 48 HOURS Assessment and Plan (1) Sepsis Current visit: Yes Status: Acute Category: Medical Code(s): A41.9 - Sepsis, unspecified organism (2) Hypokalemia Current visit: Yes Status: Acute Category: Medical Code(s): E87.6 - Hypokalemia (3) CAP (community acquired pneumonia) Current visit: Yes Status: Acute Qualifiers: Laterality: right Lung location: lower lobe of lung Qualified Code(s): J18.1 - Lobar pneumonia, unspecified organism Category: Medical Code(s): J18.9 - Pneumonia, unspecified organism (4) Hyponatremia Current visit: Yes Status: Acute Category: Medical Code(s): E87.1 - Hypo- osmolality and hyponatremia (5) Cigarette smoker Current visit: Yes Status: Acute Category: Medical Code(s): F17.210 - Nicotine dependence, cigarettes, uncomplicated (6) New onset atrial fibrillation Current visit: Yes Status: Acute Category: Medical Code(s): I48.91 - Unspecified atrial fibrillation (7) Heart failure with reduced ejection fraction, NYHA class I Current visit: Yes Status: Acute Category: Medical Code(s): I50.20 - Unspecified systolic (congestive) heart failure (8) Heartburn Current visit: Yes Status: Acute Category: Medical Code(s): R12 - Heartburn The patient's infection will respond to the chosen ABx?: Yes Is the patient receiving the right drug, dose, and route?: Yes Could a more targeted ABx be ordered?: No
[2018-01-12 06:51] LABS: Anion Gap 12.2 mEq/L (5-15); Calcium 8.3 mg/dL (8.5-10.1); Potassium 3.2 mmoL/L (3.5-5.1)
[2018-01-12 07:13] LABS: Basophils % 0.2 % (0.1-2.0); Eosinophils # 0.1 K/mm3 (0.0-0.4); Eosinophils % 1.3 % (0.1-12.0); Hemoglobin 13.4 g/dL (14.1-18.0); Lymphocytes # 1.9 K/mm3 (0.7-4.5); Lymphocytes % 20.7 % (10-50); Mean Corpuscular HGB Conc 32.6 g/dL (31.8-35.4); Mean Corpuscular Hemoglobin 30.1 pg (27.0-31.2); Mean Corpuscular Volume 92.5 fl (80-94); Mean Platelet Volume 8.5 fl (7.4-10.4); Monocytes # 0.5 K/mm3 (0.1-1.0); Monocytes % 5.8 % (1.7-9.3); Neutrophils # 6.5 K/mm3 (1.8-7.8); Platelet Count 291 K/mm3 (142-424); Red Blood Count 4.43 M/mm3 (4.60-6.20); Red Cell Distribution Width 13.4 % (11.5-17.5)
--- NOTE | 2018-01-12 08:39 | Consult Report ---
History of Present Illness Consult date: 01/12/18 Requesting physician: Sukhjinder Santana Consult reason: shortness of breath Chief complaint: A. fib, Additional Medical History:: 1. Tobacco use 2. Bilateral pneumonia, 12/2017 3. A. fib with RVR, 12/2017 A. CHADS-VASC score is suspected to be > 2 (possible TIA, and possible anterior DE by EKG) History of present illness: 62-year-old male with no significant medical history other than he is a smoker presented to the emergency department with fevers and change in level of consciousness. Patient had been experiencing fevers for approximately the last week. He had associated cough and mild shortness of breath. This did not prevent him from traveling to [place]. Upon return from [place] he was spending time with family yesterday and was noticed to have altered level of consciousness and was brought to the ER. In the ER patient seemed excessively sleepy but could awaken with verbal and tactile stimulus. He would answer questions appropriately and then she had his eyes again. He was found to be febrile. Workup was begun which were revealed a right lower lobe pneumonia on chest x-ray. Once patient defervesced he became more alert. Patient was admitted for treatment of right lower lobe pneumonia. Once he arrived up on the floor patient returned to his previous level of consciousness with excessive drowsiness. He would easily awaken to verbal and tactile stimulus from the nurses. He developed hypothermia and was placed under warm blankets and a bear hugger. Patient also developed some widened QRS for a few beats on telemetry monitoring and was given a gram of magnesium. This morning he remains drowsy but awakens easily. He denies pain. He denies chest pain. He denies joint pains. He denies rashes. He denies nausea, vomiting, diarrhea. The above per Dr. Farmer Pt relates tobacco use of 1 ppd for 40 yrs. Never diagnosed with HTN, HLD or DM but hasn't been to the doctor in 20 yrs. Recently noticed extreme fatigue with HOLCOMB but without chest pain. Cardizem has maintained some rate control but not rhythm. Pt states he is feeling much better than admission. EKG's show a. fib and sinus rhythm with PRWP anteriorly. [facility] History Medical History: Denies:: Cancer, Diabetes Mellitus Type 1, Diabetes Mellitus Type 2, MRSA Other Surgeries: Yes: No Previous Surgery Amputation: No Fractures: No - *Social History Educational Level: Attended High School Smoking Status: Current every day smoker Tobacco Type: cigarettes # Packs/Day (cigarettes): 1 #Yrs smoked (if former smoker): 30 Alcohol Intake: current Alcohol Intake Frequency:: holidays/special occasions only Occupational Status: employed Housing: house Household Members: family - Psychiatric History Expresses thoughts of harming self/others: None Suicide Plan Description: No Plan *Family Hx:: No significant family history Meds Home Medications Medication Instructions Recorded Confirmed Type No Known Home Medications 01/08/18 01/08/18 History Allergies Allergy/AdvReac Type Severity Reaction Status Date / Time No Known Allergies Allergy Verified 01/07/18 10:58 Review of Systems - *Cardiovascular Reports shortness of breath, Reports shortness of breath with activity - *Respiratory Reports shortness of breath with activity - *Gastrointestinal Denies loose stools - *Neurologic Reports confusion, Reports weakness, Denies seizure-like activity Exam Vital signs and Labs for Last 24 Hours: Temp Pulse Resp BP Pulse Ox 97.9 F 102 H 20 154/72 H 94 L 01/12/18 07:53 01/12/18 07:53 01/12/18 07:53 01/12/18 07:53 01/12/18 07:53 Laboratory Results - last 24 hr 01/11/18 08:45: Vancomycin Trough 5.3 L 01/12/18 05:25: WBC 9.0, RBC 4.43 L, Hgb 13.4 L, Hct 41.0 L, MCV 92.5, MCH 30.1, MCHC 32.6, RDW 13.4, Plt Count 291, MPV 8.5, Neut % (Auto) 72.0, Lymph % (Auto) 20.7, [place] % (Auto) 5.8, Eos % (Auto) 1.3, Baso % (Auto) 0.2, Neut # (Auto) 6.5, Lymph # (Auto) 1.9, [place] # (Auto) 0.5, Eos # (Auto) 0.1, Baso # (Auto) 0.0 01/12/18 05:25: Sodium 140, Potassium 3.2 L, Chloride 103, Carbon Dioxide 28, Anion Gap 12.2, BUN 6 L D, Creatinine 0.59 L, Estimated Creat Clear 97, Estimated GFR 138, Est GFR ( Amer) 167, Glucose 102, Calcium 8.3 L I & O for Last 24 hours: Intake & Output 01/09/18 01/10/18 01/11/18 01/12/18 11:59 11:59 11:59 11:59 Intake Total 1979 8551 / 8551 3210 / 3210 1520 / 1520 Output Total 1000 / 1000 440 / 440 2875 / 2875 4725 / 4725 Balance 980 / 980 8111 / 8111 335 / 335 -3205 / -3205 Weight 201 lb 7 oz 203 lb 4.259 oz 217 lb 2 oz 203 lb 6 oz Microbiology Reports for the Last 24 Hours: Microbiology 01/12/18 06:40 Sputum - Expectorated Sputum Gram Stain - Final - *Routine Neck Exam Present: supple. Absent: JVD, carotid bruit - *Routine Respiratory Exam Present: decreased breath sounds, rhonchi, diminished air movement. Absent: accessory muscle use, rales, wheezes - *Routine Cardiovascular Exam Present: irregularly irregular. Absent: murmur, gallop, rubs - *Routine Abdominal Exam Present: soft. Absent: tenderness, distended, guarding - *Routine Extremities Exam Present: edema. Absent: calf tenderness - *Routine Neurological Exam Present: alert, oriented X3, moving all extremities Assessment and Plan (1) Sepsis Current visit: Yes Status: Acute Category: Medical Code(s): A41.9 - Sepsis, unspecified organism (2) Hypokalemia Current visit: Yes Status: Acute Category: Medical Code(s): E87.6 - Hypokalemia (3) CAP (community acquired pneumonia) Current visit: Yes Status: Acute Qualifiers: Laterality: right Lung location: lower lobe of lung Qualified Code(s): J18.1 - Lobar pneumonia, unspecified organism Category: Medical Code(s): J18.9 - Pneumonia, unspecified organism (4) Hyponatremia Current visit: Yes Status: Acute Category: Medical Code(s): E87.1 - Hypo- osmolality and hyponatremia (5) Cigarette smoker Current visit: Yes Status: Acute Category: Medical Code(s): F17.210 - Nicotine dependence, cigarettes, uncomplicated (6) New onset atrial fibrillation Current visit: Yes Status: Acute Category: Medical Code(s): I48.91 - Unspecified atrial fibrillation (7) Heart failure with reduced ejection fraction, NYHA class I Current visit: Yes Status: Acute Category: Medical Code(s): I50.20 - Unspecified systolic (congestive) heart failure (8) Heartburn Current visit: Yes Status: Acute Category: Medical Code(s): R12 - He artburn - Assessment and plan all Dx Assessment and Plan for all problems:: 1. Will get echo, if not ordered already, due to reported EF of 42% (no report o n chart at this time) and if cardiomyopathy confirmed then add coreg and entresto with further cardiac workup as indicated. 2. Rate controlled currently on cardizem at rest but with quick increase in heart rate with minimal activity. 3. Sepsis/pneumonia is being treated. 4. Speech/swallowing evaluation today. 5. Continue lovenox for now with plans to switch to PO anticoagulation if no invasive procedures planned.
--- NOTE | 2018-01-12 08:58 | Progress Note ---
Internal Medicine - PN: Subj *Date: 01/12/18 *Time: 08:56 Interval history: Patient feels "better." Notes that he had a good night sleep. Denies pain. Notes that his swallowing function is slightly better. Gives me a history that 15-20 years ago he saw Dr. Rincon because of a sensation of food sticking at his epigastric area and he was given a pill that resolved this. Exam Vital signs and Labs for Last 24 Hours: Temp Pulse Resp BP Pulse Ox 97.9 F 102 H 20 154/72 H 94 L 01/12/18 07:53 01/12/18 07:53 01/12/18 07:53 01/12/18 07:53 01/12/18 07:53 Laboratory Results - last 24 hr 01/11/18 08:45: Vancomycin Trough 5.3 L 01/12/18 05:25: WBC 9.0, RBC 4.43 L, Hgb 13.4 L, Hct 41.0 L, MCV 92.5, MCH 30.1, MCHC 32.6, RDW 13.4, Plt Count 291, MPV 8.5, Neut % (Auto) 72.0, Lymph % (Auto) 20.7, [place] % (Auto) 5.8, Eos % (Auto) 1.3, Baso % (Auto) 0.2, Neut # (Auto) 6.5, Lymph # (Auto) 1.9, [place] # (Auto) 0.5, Eos # (Auto) 0.1, Baso # (Auto) 0.0 01/12/18 05:25: Sodium 140, Potassium 3.2 L, Chloride 103, Carbon Dioxide 28, Anion Gap 12.2, BUN 6 L D, Creatinine 0.59 L, Estimated Creat Clear 97, Estimated GFR 138, Est GFR ( Amer) 167, Glucose 102, Calcium 8.3 L I & O for Last 24 hours: Intake & Output 01/09/18 01/10/18 01/11/18 01/12/18 11:59 11:59 11:59 11:59 Intake Total 1979 / 1979 8551 / 8551 3210 / 3210 1520 / 1520 Output Total 1000 / 1000 440 / 440 2875 / 2875 4725 / 4725 Balance 980 / 980 8111 / 8111 335 / 335 -3205 / -3205 Weight 201 lb 7 oz 203 lb 4.259 oz 217 lb 2 oz 203 lb 6 oz Microbiology Reports for the Last 24 Hours: Microbiology 01/12/18 06:40 Sputum - Expectorated Sputum Gram Stain - Final Narrative: Patient is pleasant, talkative, oriented x3. Cranial nerves intact. Moves all extremities equally. Lungs have good air movement rhonchi in both bases and some expiratory rhonchi in the upper lung olivier. Heart rate regular with ectopic beats. Abdomen soft and nontender, no edema or clubbing. Assessment and Plan (1) Sepsis Current visit: Yes Status: Acute Category: Medical Code(s): A41.9 - Sepsis, unspecified organism (2) Hypokalemia Current visit: Yes Status: Acute Category: Medical Code(s): E87.6 - Hypokalemia (3) CAP (community acquired pneumonia) Current visit: Yes Status: Acute Qualifiers: Laterality: right Lung location: lower lobe of lung Qualified Code(s): J18.1 - Lobar pneumonia, unspecified organism Category: Medical Code(s): J18.9 - Pneumonia, unspecified organism (4) Hyponatremia Current visit: Yes Status: Acute Category: Medical Code(s): E87.1 - Hypo- osmolality and hyponatremia (5) Cigarette smoker Current visit: Yes Status: Acute Category: Medical Code(s): F17.210 - Nicotine dependence, cigarettes, uncomplicated (6) New onset atrial fibrillation Current visit: Yes Status: Acute Category: Medical Code(s): I48.91 - Unspecified atrial fibrillation (7) Heart failure with reduced ejection fraction, NYHA class I Current visit: Yes Status: Acute Category: Medical Code(s): I50.20 - Unspecified systolic (congestive) heart failure (8) Heartburn Current visit: Yes Status: Acute Category: Medical Code(s): R12 - Heartburn - Assessment and plan all Dx Assessment and Plan for all problems:: Reviewed above problem list. We will continue IV antibiotics. Await final culture results. Cardiology consultation given suppressed ejection fraction. Probably will benefit from beta-blockers. I do not think this would be detrimental to his lung function at this point, we will closely monitor. His swallowing issues I think speech therapy evaluation is warranted. I would like an esophagram because of the remote history of food sticking. Given history of atrial fibrillation and now swallowing dysfunction may have had paroxysmal A. fib in the past with a possible small ischemic event. Patient would benefit from MRI as inpatient. Currently has no neurologic deficits other than the swallowing problem and this is improving. This could possibly be from his acute illness.
[2018-01-13 06:45] LABS: Basophils # 0.1 K/mm3 (0-0.2); Basophils % 0.5 % (0.1-2.0); Eosinophils # 0.4 K/mm3 (0.0-0.4); Eosinophils % 3.3 % (0.1-12.0); Hemoglobin 12.9 g/dL (14.1-18.0); Lymphocytes # 2.2 K/mm3 (0.7-4.5); Lymphocytes % 20.1 % (10-50); Mean Corpuscular HGB Conc 32.4 g/dL (31.8-35.4); Mean Corpuscular Hemoglobin 30.2 pg (27.0-31.2); Mean Corpuscular Volume 93.3 fl (80-94); Mean Platelet Volume 8.3 fl (7.4-10.4); Monocytes # 0.7 K/mm3 (0.1-1.0); Monocytes % 6.8 % (1.7-9.3); Neutrophils # 7.6 K/mm3 (1.8-7.8); Neutrophils % 69.3 % (37.0-80.0); Platelet Count 392 K/mm3 (142-424); Red Blood Count 4.28 M/mm3 (4.60-6.20); Red Cell Distribution Width 13.5 % (11.5-17.5)
[2018-01-13 06:58] LABS: Anion Gap 10.2 mEq/L (5-15); Calcium 8.1 mg/dL (8.5-10.1); Potassium 3.2 mmoL/L (3.5-5.1)
--- NOTE | 2018-01-13 08:04 | Progress Note ---
Internal Medicine - PN: Subj *Date: 01/13/18 *Time: 08:05 Interval history: Patient did well overnight. Had some fluctuations in blood pressure with mild elevation however heart rate remained at goal less than 110. Tolerating increase of diltiazem to 240. Plan for barium swallow this morning, n.p.o. at this time. Patient has no complaints of fever, nausea or vomiting, chest pain, shortness of breath. Does have a bit of a productive cough however remains stable on room air. Overall patient states he feels well Exam Vital signs and Labs for Last 24 Hours: Temp Pulse Resp BP Pulse Ox 98.8 F 87 18 118/73 94 L 01/13/18 04:00 01/13/18 04:00 01/13/18 04:00 01/13/18 04:00 01/13/18 04:00 Laboratory Results - last 24 hr 01/08/18 20:30: Mycoplasma pneumon IgG 1396 H, Mycoplasma pneumon IgM <770, S. pneumoniae Antigen Negative 01/08/18 21:25: Ur L.pneumophila Ag Positive A 01/13/18 06:10: WBC 11.0 H, RBC 4.28 L, Hgb 12.9 L, Hct 40.0 L, MCV 93.3, MCH 30.2, MCHC 32.4, RDW 13.5, Plt Count 392 D, MPV 8.3, Neut % (Auto) 69.3, Lymph % (Auto) 20.1, [place] % (Auto) 6.8, Eos % (Auto) 3.3, Baso % (Auto) 0.5, Neut # (Auto) 7.6, Lymph # (Auto) 2.2, [place] # (Auto) 0.7, Eos # (Auto) 0.4, Baso # (Auto) 0.1 01/13/18 06:10: Sodium 139, Potassium 3.2 L, Chloride 103, Carbon Dioxide 29, Anion Gap 10.2, BUN 5 L, Creatinine 0.59 L, Estimated Creat Clear 97, Estimated GFR 138, Est GFR ( Amer) 167, Glucose 116 H, Calcium 8.1 L I & O for Last 24 hours: Intake & Output 01/10/18 01/11/18 01/12/18 01/13/18 23:59 23:59 23:59 23:59 Intake Total 4290 / 4290 2717 / 2717 1740 / 1740 Output Total 1640 / 1640 4250 / 4250 3500 / 3500 1200 / 1200 Balance 2650 / 2650 -1533 / -1533 -1760 / -1760 -1200 / -1200 Weight 92.2 kg 98.486 kg 92.249 kg Microbiology Reports for the Last 24 Hours: Microbiology 01/12/18 06:40 Sputum - Expectorated Sputum Gram Stain - Final Narrative: Patient is pleasant, talkative, oriented x3. Cranial nerves intact. Moves all extremities equally. Lungs have good air movement rhonchi in both bases and some expiratory rhonchi in the upper lung olivier. Heart rate irregular with ectopic beats. Abdomen soft and nontender, no edema or clubbing. Assessment and Plan (1) Sepsis Current visit: Yes Status: Acute Category: Medical Code(s): A41.9 - Sepsis, unspecified organism (2) Hypokalemia Current visit: Yes Status: Acute Category: Medical Code(s): E87.6 - Hypokalemia (3) CAP (community acquired pneumonia) Current visit: Yes Status: Acute Qualifiers: Laterality: right Lung location: lower lobe of lung Qualified Code(s): J18.1 - Lobar pneumonia, unspecified organism Category: Medical Code(s): J18.9 - Pneumonia, unspecified organism Continue current antibiotics. Plan for 10 days total of therapy. Last dose of Omnicef on 01/19/18. Complete azithromycin tomorrow (4) Hyponatremia Current visit: Yes Status: Acute Category: Medical Code(s): E87.1 - Hypo- osmolality and hyponatremia (5) Cigarette smoker Current visit: Yes Status: Acute Category: Medical Code(s): F17.210 - Nicotine dependence, cigarettes, uncomplicated (6) New onset atrial fibrillation Current visit: Yes Status: Acute Category: Medical Code(s): I48.91 - Unspecified atrial fibrillation (7) Heartburn Current visit: Yes Status: Acute Category: Medical Code(s): R12 - Heartburn Barium swallow scheduled for today. Patient n.p.o. at this time except for meds. Other management pending results from barium swallow. If no concern for achalasia, or stricture, will likely plan for discharge home as he is on a stable regimen. If needs further intervention, will continue to hold inpatient as he will not be medically ready to go.
--- NOTE | 2018-01-13 08:39 | Progress Note ---
Subjective Date: 01/13/18 Time: 08:36 Principal diagnosis: A.fib Interval history: 62 yo WM in bed in NAD. No complaints of chest pain. SOA has improved. Tele shows A.Fib with CVR at rest. Exam Vital signs and Labs for Last 24 Hours: Temp Pulse Resp BP Pulse Ox 98.8 F 80 18 118/73 94 L 01/13/18 04:00 01/13/18 08:00 01/13/18 04:00 01/13/18 04:00 01/13/18 04:00 Laboratory Results - last 24 hr 01/08/18 20:30: Mycoplasma pneumon IgG 1396 H, Mycoplasma pneumon IgM <770, S. pneumoniae Antigen Negative 01/08/18 21:25: Ur L.pneumophila Ag Positive A 01/13/18 06:10: WBC 11.0 H, RBC 4.28 L, Hgb 12.9 L, Hct 40.0 L, MCV 93.3, MCH 30.2, MCHC 32.4, RDW 13.5, Plt Count 392 D, MPV 8.3, Neut % (Auto) 69.3, Lymph % (Auto) 20.1, [place] % (Auto) 6.8, Eos % (Auto) 3.3, Baso % (Auto) 0.5, Neut # (Auto) 7.6, Lymph # (Auto) 2.2, [place] # (Auto) 0.7, Eos # (Auto) 0.4, Baso # (Auto) 0.1 01/13/18 06:10: Sodium 139, Potassium 3.2 L, Chloride 103, Carbon Dioxide 29, Anion Gap 10.2, BUN 5 L, Creatinine 0.59 L, Estimated Creat Clear 97, Estimated GFR 138, Est GFR ( Amer) 167, Glucose 116 H, Calcium 8.1 L I & O for Last 24 hours: Intake & Output 01/10/18 01/11/18 01/12/18 01/13/18 11:59 11:59 11:59 11:59 Intake Total 8551 / 8551 3210 / 3210 1999 / 1999 700 / 700 Output Total 440 / 440 2875 / 2875 5025 / 5025 2250 / 2250 Balance 8111 / 8111 335 / 335 -3025 / -3025 -1550 / -1550 Weight 203 lb 4.259 oz 217 lb 2 oz 203 lb 6 oz Microbiology Reports for the Last 24 Hours: Microbiology 01/12/18 06:40 Sputum - Expectorated Sputum Gram Stain - Final 01/12/18 06:40 Sputum - Expectorated Sputum Sputum Culture - Preliminary - *Routine Neck Exam Present: supple. Absent: JVD, carotid bruit - *Routine Respiratory Exam Present: decreased breath sounds. Absent: accessory muscle use, rales, rhonchi, wheezes Comments: Improved breath sounds. No wheezing. - *Routine Cardiovascular Exam Present: RRR, irregularly irregular. Absent: murmur, gallop, rubs - *Routine Extremities Exam Present: edema. Absent: calf tenderness Progress Note: A&P (1) Sepsis Status: Acute Current Visit: Yes (2) Hypokalemia Status: Acute Current Visit: Yes (3) CAP (community acquired pneumonia) Status: Acute Current Visit: Yes (4) Hyponatremia Status: Acute Current Visit: Yes (5) Cigarette smoker Status: Acute Current Visit: Yes (6) New onset atrial fibrillation Status: Acute Current Visit: Yes (7) Heartburn Status: Acute Current Visit: Yes Assessment and Plan for All Diagnoses:: 1. Some edema with low BUN. Will give one time dose of lasix. 2. Increased cardizem to 240 mg daily. 3. Xarelto started. 4. OK for discharge from Cardiology standpoint when OK with Dr. Santana. 5. Follow up in 1-2 wks and will plan to consider cardioversion in one month if still in A. fib.
--- NOTE | 2018-01-14 08:30 | Progress Note ---
Internal Medicine - PN: Subj *Date: 01/14/18 *Time: 08:30 Exam Vital signs and Labs for Last 24 Hours: Temp Pulse Resp BP Pulse Ox 98.5 F 74 18 117/71 95 01/14/18 08:00 01/14/18 08:00 01/14/18 08:00 01/14/18 08:00 01/14/18 08:00 I & O for Last 24 hours: Intake & Output 01/11/18 01/12/18 01/13/18 01/14/18 23:59 23:59 23:59 23:59 Intake Total 2717 / 2717 1740 / 1740 480 / 480 360 / 360 Output Total 4250 / 4250 3500 / 3500 2850 / 2850 350 / 350 Balance -1533 / -1533 -1760 / -1760 -2370 / -2370 Weight 98.486 kg 92.249 kg Microbiology Reports for the Last 24 Hours: Microbiology 01/12/18 06:40 Sputum - Expectorated Sputum Gram Stain - Final 01/12/18 06:40 Sputum - Expectorated Sputum Sputum Culture - Preliminary 01/08/18 20:33 Blood Blood Culture - Final NO GROWTH AFTER 5 DAYS 01/08/18 20:33 Blood Blood Culture - Final NO GROWTH AFTER 5 DAYS Assessment and Plan (1) Sepsis Current visit: Yes Status: Acute Category: Medical Code(s): A41.9 - Sepsis, unspecified organism (2) Hypokalemia Current visit: Yes Status: Acute Category: Medical Code(s): E87.6 - Hypokalemia (3) CAP (community acquired pneumonia) Current visit: Yes Status: Acute Qualifiers: Laterality: right Lung location: lower lobe of lung Qualified Code(s): J18.1 - Lobar pneumonia, unspecified organism Category: Medical Code(s): J18.9 - Pneumonia, unspecified organism (4) Hyponatremia Current visit: Yes Status: Acute Category: Medical Code(s): E87.1 - Hypo- osmolality and hyponatremia (5) Cigarette smoker Current visit: Yes Status: Acute Category: Medical Code(s): F17.210 - Nicotine dependence, cigarettes, uncomplicated (6) New onset atrial fibrillation Current visit: Yes Status: Acute Category: Medical Code(s): I48.91 - Unspecified atrial fibrillation (7) Heartburn Current visit: Yes Status: Acute Category: Medical Code(s): R12 - Heartburn The patient's infection will respond to the chosen ABx?: Yes Is the patient receiving the right drug, dose, and route?: Yes Could a more targeted ABx be ordered?: No
--- NOTE | 2018-01-14 08:43 | Discharge Summary ---
General - General Admission date:: 01/09/18 Discharge date: 01/14/18 HPI HPI: 62-year-old male with no significant medical history other than he is a smoker presented to the emergency department with fevers and change in level of consciousness. Patient had been experiencing fevers for approximately the last week. He had associated cough and mild shortness of breath. This did not prevent him from traveling to [place]. Upon return from [place] he was spending time with family yesterday and was noticed to have altered level of consciousness and was brought to the ER. In the ER patient seemed excessively sleepy but could awaken with verbal and tactile stimulus. He would answer questions appropriately and then she had his eyes again. He was found to be febrile. Workup was begun which were revealed a right lower lobe pneumonia on chest x-ray. Once patient defervesced he became more alert. Patient was admitted for treatment of right lower lobe pneumonia. Once he arrived up on the floor patient returned to his previous level of consciousness with excessive drowsiness. He would easily awaken to verbal and tactile stimulus from the nurses. He developed hypothermia and was placed under warm blankets and a bear hugger. Patient also developed some widened QRS for a few beats on telemetry monitoring and was given a gram of magnesium. This morning he remains drowsy but awakens easily. He denies pain. He denies chest pain. He denies joint pains. He denies rashes. He denies nausea, vomiting, diarrhea. Hospital Course Hospital Course: Patient was admitted, placed on broad-spectrum IV antibiotics for sepsis workup, found to have pneumonia. Sputum and blood cultures were nondiagnostic, but serologic testing confirmed infection with mycoplasma and with Legionella. Patient was transitioned over the next couple of days to macrolide antibiotics and improved very nicely with defervesce and improving white counts. In regards to other issues patient was found to have atrial fibrillation with rapid ventricular response, treated appropriately with IV fluids and diltiazem. Ejection fraction was preserved, and patient was continued on rate control/blood pressure control with diltiazem. He remained in atrial fibrillation and anti-correlation therapy with Xarelto was started. He tolerated this well with no decrease in his blood counts. Over the next couple of days he improved nicely. He did have some dysphagia, and a history of lower esophageal dysphagia which was worked up with speech evaluation and upper GI with esophagram. After his acute illness had essentia lly resolved his swallowing difficulties also resolved and he passed his modified barium swallow. He was found to have an esophageal diverticulum on the esophagram. However, his symptoms had resolved with proton pump inhibitor. Discharge plan will be as follows: 1. He will follow-up with cardiology in 1 or 2 weeks to evaluate ongoing atrial fibrillation. He will be discharged home on diltiazem and Xarelto. 2. He will be treated with azithromycin for his mycoplasma/Legionella infection. We reported the Legionella infection to the [facility] health department. 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 3. Esophageal diverticulum with history of dysphagia. We will set him up for EGD with Dr. Bryant in the next 4-6 weeks. Will be discharged home on daily Protonix therapy. 4. Patient has not seen any medical providers over the past decades, we will set him up in our office for preventative care/hospital follow-up evaluation. Objective Vital signs: Temp Pulse Resp BP Pulse Ox 98.5 F 74 18 117/71 95 01/14/18 08:00 01/14/18 08:00 01/14/18 08:00 01/14/18 08:00 01/14/18 08:00 Narrative: Patient is alert. Pleasant. In no distress. Oriented x3. Oropharynx clear. No JVD. ENT exam otherwise clear. Good air movement bilaterally. Minimal rhonchi in both bases but this clears with a vigorous deep breath. Heart rate regular. Abdomen soft and nontender. Good perfusion. No neurologic deficits. No rash. Results Labs on day of discharge: Preliminary micro results at discharge 01/12/18 06:40 Sputum Culture - Preliminary Sputum - Expectorated Sputum DS: Diagnosis - Discharge Diagnosis (1) Sepsis Status: Resolved (2) Hypokalemia Status: Resolved (3) CAP (community acquired pneumonia) Status: Acute (4) Hyponatremia Status: Acute (5) Cigarette smoker Status: Acute (6) New onset atrial fibrillation Status: Acute (7) Heartburn Status: Acute (8) Legionella pneumonia Status: Acute (9) Mycoplasma pneumonia Status: Acute (10) Esophageal diverticulum Status: Acute Discharge Plan - Patient Discharge Instructions ACTIVITY: Continue current activity, Limited activity Additional Instructions: No work until seen in our office early next week Patient Instructions: Pneumonia-Adult, Legionnaires' Disease, Balanced Diet, Hyponatremia-Adult, Esophageal Dysphagia, Hypokalemia - Follow up Plan Follow up with: Sukhjinder Santana MD [Staff Physician] - 01/20/18 Disposition: Home, Self-Nursing Home Medications: Home Medications Medication Instructions Recorded Confirmed Type No Known Home Medications 01/08/18 01/08/18 History Prescriptions/Medication Reconciliation: New dilTIAZem HCl [Cardizem ER 240mg Capsule] 240 mg PO DAILY #30 cap.er.24h Nicotine [Nicoderm 21mg/24hr patch] 21 mg TD DAILYP PRN #30 patch.td24 PRN Reason: Nicotine Cravings Pantoprazole Sodium [Protonix 40mg tablet] 40 mg PO HS #30 tablet. Rivaroxaban [Xarelto 20mg Tablet] 20 mg PO DAILY #30 tab Azithromycin [Zithromax 250mg tab] 250 mg PO DIRECTED #6 tab No Action No Known Home Medications
== END 2018-01-14 10:23 | disposition home or self-care (01) ==
LOC: 2ND 20:17 → ER 20:17 → 2ND 22:30 → ICU 01-09 22:29 → 2ND 01-13 16:24
PROVIDERS: ADMIT Family Medicine; ATTEND Internal Medicine Adolescent Medicine

== ENCOUNTER 2020-02-04 16:50 | Emergency (ER) | payer OTHER, SELFPAY ==
[2020-02-04 17:00] VITALS: BP 163/102; PULSE 73; RESP 20; TEMP 36.6; O2SAT 97; BMI 32.1
--- NOTE | 2020-02-04 17:05 | HMH.EDUTC ---
[facility] Disposition Clinical Impression: Exposure to COVID-19 virus Disposition: Home, Self-Care Condition on Discharge: Good Instructions: Preventing the Spread of Coronavirus Discharge Instructions Referrals: Mk Sultana MD [Primary Care Provider] - Time of Disposition: 17:10 Medical Decision Making - Trevor Inquiry Pt receiving controlled substance: No [facility] HPI - General Stated complaint: covid test Time Seen by Provider: 02/04/20 17:05 - History of Present Illness Provider Complaint: Needs COVID19 testing to return to work as he recently traveled to [place] for a . No symptoms. Treatments prior to arrival: none - Related Data Home Medications Medication Instructions Recorded Confirmed Pantoprazole Sodium [Protonix 40mg 40 mg PO HS 02/18/18 02/18/18 tablet] Rivaroxaban [Xarelto 20mg Tablet] 20 mg PO DAILY 02/18/18 02/18/18 dilTIAZem HCL [Cardizem ER 240mg 240 mg PO DAILY 02/18/18 02/23/18 Capsule] Allergies Allergy/AdvReac Type Severity Reaction Status Date / Time No Known Allergies Allergy Verified 02/18/18 14:14 [facility] History - Hepatitis A Screen Attestation statement:: This patient has been screened for Hepatitis A risk factors. I have reviewed the patient's past medical history: Yes Medical History: Reports:: Atrial Fibrillation, Lung Disease (pneumonia) Denies:: Cancer, Diabetes Mellitus Type 1, Diabetes Mellitus Type 2, Internal Pacemaker, MRSA, Seizures Other Medical History: Denies: Blood Transfusion Reaction Other Surgeries: Yes: No Previous Surgery. No: Pacemaker Amputation: No Fractures: No - Social History Smoking Status: Former smoker Tobacco Type: cigarettes # Packs/Day (cigarettes): 1 #Yrs smoked (if former smoker): 30 Alcohol Intake: current Alcohol Intake Frequency:: holidays/special occasions only Substance Use Type: denies use Occupational Status: employed Housing: house Household Members: family Family Hx:: Diabetes ROS Obtained: Yes All systems reviewed & no additional complaints Physical Exam - General General appearance: alert, in no apparent distress - Head Head exam: normocephalic - Eye Eye exam: Present: PERRL - ENT ENT exam: Present: normal oropharynx - Respiratory Respiratory exam: Present: normal lung sounds bilaterally - Cardiovascular Cardiovascular exam: Present: regular rate, normal rhythm - Neurological Exam Neurological exam: Present: alert, oriented X3 - Psychiatric Psychiatric exam: Present: normal affect, normal mood
[2020-02-04 17:14] VITALS: BP 163/102; PULSE 73; RESP 20; TEMP 36.6; O2SAT 97
[2020-02-06 08:27] LABS: Covid-19 Nasal PCR Sendout UK Not Detected
== END 2020-02-04 17:15 | disposition home or self-care (01) ==
PROVIDERS: Emergency Provider Physician Assistant; PCP Internal Medicine Adolescent Medicine
DX: Z20.828 Contact with and (suspected) exposure to other viral communicable diseases (principal); I48.0 Paroxysmal atrial fibrillation; J18.9 Pneumonia, unspecified organism; Z79.899 Other long term (current) drug therapy
CPT/HCPCS: 99201; U0003